=== PATIENT | male | born 1970 | race Two or more races ===

== ENCOUNTER 2017-06-05 03:53 | Inpatient (IN) | payer OTHER ==
[~2017-06-05] VITALS: Ht 162.6 cm; Wt 84.9 kg
[2017-06-05] MEDS ORDERED: ALBUTEROL/IPRATROPIUM 2.5MG/0.5MG, 3 ML ONE (04:04)
[2017-06-05] MEDS ORDERED: ALBUTEROL 0.5%, 20ML ONE (04:05)
[2017-06-05] MEDS ORDERED: methylPREDNISolone SOD SUCC 40 MG/ML ONE (04:10)
[2017-06-05] MEDS ORDERED: methylPREDNISolone SOD SUCC 125 MG/2 ML ONE (04:12)
[2017-06-05] MEDS ORDERED: ALBUTEROL/IPRATROPIUM 2.5MG/0.5MG, 3 ML NPPB PRN (04:30)
[2017-06-05] MEDS ORDERED: MAGNESIUM SULFATE PMX 2GM/50ML 50 ML IV ONE (04:30)
[2017-06-05] MEDS ORDERED: methylPREDNISolone SOD SUCC 125 MG/2 ML IVP ONE (04:30)
[2017-06-05] MEDS ORDERED: SODIUM CHLORIDE FLUSH 10ML SYR IVF ONE (04:30)
[2017-06-05] MEDS ORDERED: SODIUM CHLORIDE 0.9% 1,000ML IVBOLUS ONE (04:30)
[2017-06-05] MEDS: ALBUTEROL/IPRATROPIUM 2.5MG/0.5MG, 3 ML NPPB SCH ×7 (04:38→22:55)
[2017-06-05] MEDS ORDERED: IPRA12.9 NEB (04:52)
[2017-06-05] MEDS ORDERED: ALBU18HF PO (04:52)
[2017-06-05 04:54] LABS: HEMATOCRIT 54.1 % (39.2-51.8); HEMOGLOBIN 17.8 g/dL (13.7-18.0); WHITE BLOOD COUNT 7.8 x10^3/uL (3.4-10)
[2017-06-05 05:05] LABS: ASPARTATE AMINO TRANSFERASE 11 U/L (15-37); BLOOD UREA NITROGEN 19 mg/dL (7-18)
[2017-06-05] MEDS ORDERED: ACETAMINOPHEN 325 MG TABLET PO PRN (05:30)
[2017-06-05] MEDS ORDERED: DOCUSATE 100 MG CAPSULE PO PRN (05:30)
[2017-06-05] MEDS ORDERED: ONDANSETRON 2MG/ML, 2ML IVPush PRN (05:30)
[2017-06-05] MEDS ORDERED: PROMETHAZINE 25 MG/ML, 1ML IM PRN (05:30)
[2017-06-05] MEDS ORDERED: BISACODYL 10 MG SUPP PR PRN (05:30)
[2017-06-05] MEDS ORDERED: POLYETHYLENE GLYCOL 17 GM PACKET PO PRN (05:30)
[2017-06-05 05:57] VITALS: BP 140/90
[2017-06-05] MEDS ORDERED: PNEUMOCOCCAL 23 VACCINE IM-VACC ONE (06:00)
[2017-06-05] MEDS: HYDROcodone/APAP 5/325 TABLET PO PRN ×2 (06:06→22:55)
[2017-06-05] MEDS: ENOXAPARIN 40 MG/0.4 ML SQ SCH (06:06)
[2017-06-05 07:53] VITALS: BP 125/74
[2017-06-05] MEDS: methylPREDNISolone SOD SUCC 125 MG/2 ML IVPush SCH ×3 (09:04→22:49)
[2017-06-05 12:57] VITALS: BP 115/82
[2017-06-05 20:10] VITALS: BP 116/73
[2017-06-06 02:15] VITALS: BP 107/64
[2017-06-06] MEDS: ALBUTEROL/IPRATROPIUM 2.5MG/0.5MG, 3 ML NPPB SCH ×6 (03:40→22:00)
[2017-06-06] MEDS: methylPREDNISolone SOD SUCC 125 MG/2 ML IVPush SCH (04:37)
[2017-06-06] MEDS: ENOXAPARIN 40 MG/0.4 ML SQ SCH (05:43)
[2017-06-06 06:25] LABS: HEMATOCRIT 47.3 % (39.2-51.8); WHITE BLOOD COUNT 13.1 x10^3/uL (3.4-10)
[2017-06-06 06:34] LABS: BLOOD UREA NITROGEN 24 mg/dL (7-18)
[2017-06-06 06:37] LABS: ASPARTATE AMINO TRANSFERASE 16 U/L (15-37)
[2017-06-06 08:09] VITALS: BP 117/69
[2017-06-06 14:11] VITALS: BP 102/51
[2017-06-06 18:48] VITALS: BP 114/61
[2017-06-07 00:52] VITALS: BP 106/60
[2017-06-07] MEDS: ENOXAPARIN 40 MG/0.4 ML SQ SCH (06:25)
[2017-06-07] MEDS: ALBUTEROL/IPRATROPIUM 2.5MG/0.5MG, 3 ML NPPB SCH (07:07)
[2017-06-07 07:40] VITALS: BP 114/68
[2017-06-07] MEDS ORDERED: ALBU18HF PO (09:03)
[2017-06-07] MEDS ORDERED: PRED20TA PO (09:03)
[2017-06-07] MEDS ORDERED: IPRA12.9 NEB (09:03)
== END 2017-06-07 10:22 | disposition home or self-care (01) | DRG 189 ==
LOC: ED 04:50 → EDIP 04:51 → 4NOR 05:48 → DCLOUNGE 06-07 10:00
PROVIDERS: ADMIT Internal Medicine; ATTEND Internal Medicine
DX: J96.01 Acute respiratory failure with hypoxia (principal); J45.42 Moderate persistent asthma with status asthmaticus; R65.10 Systemic inflammatory response syndrome (SIRS) of non-infectious origin without acute organ dysfunction; J45.41 Moderate persistent asthma with (acute) exacerbation; Z91.19 Patient's noncompliance with other medical treatment and regimen; Z23 Encounter for immunization
CPT/HCPCS: 36415; 71010; 80053; 85025; 90732; 93005; 94640; 94644; 96365; 96375; J1650; J7620; J2930; J3475; J7030; J7512

== ENCOUNTER → 2017-11-01 | Outpatient (CLI) | payer BC ==
[~2017-11-01] MED LIST: ALBU18HF PO; IPRA12.9 NEB; PRED20TA PO
== END | disposition home or self-care (01) ==
LOC: CFH 15:38
PROVIDERS: ATTEND Physician Assistant
DX: M79.642 Pain in left hand (principal); M79.641 Pain in right hand

== ENCOUNTER 2019-09-07 11:13 | Emergency (ER) | payer BC ==
[~2019-09-07] VITALS: Ht 160 cm; Wt 89.3 kg
--- NOTE | 2019-09-07 11:32 | NUR ---
THIS IS A 49 YO MALE COMING IN FOR ASTHMA EXACERBATION. PATIENT HAS HX OF ASTHMA AND HAS AN INHALER AT HOME. PATIENTHAS BEEN USING INHALER FOR THE PAST DAY WITH NO RELIEF. WAS SEEN AT URGENT CARE TODAY, AND WAS SENT TO ER. 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 RESPIRATIONS ARE CURRENTLY EVEN AND UNLABORED, BUT RR IS 28. CYCLE VS Q 1 HR. FAMILY AT BEDSIDE, DENIES FURTHER NEEDS AT THIS TIME.
[2019-09-07] MEDS ORDERED: ALBUTEROL/IPRATROPIUM 2.5MG/0.5MG, 3 ML ONE ×2 (11:35→12:43)
--- NOTE | 2019-09-07 11:36 | NUR ---
RT IN ROOM
[2019-09-07] MEDS: ALBUTEROL/IPRATROPIUM 2.5MG/0.5MG, 3 ML NPPB SCH (11:39)
[2019-09-07] MEDS ORDERED: ONDANSETRON 2MG/ML, 2ML ONE (11:41)
[2019-09-07] MEDS ORDERED: MORPHINE SULFATE 4 MG/ML, 1ML ONE (11:42)
[2019-09-07] MEDS ORDERED: ONDANSETRON 2MG/ML, 2ML IVPush ONE (12:00)
[2019-09-07] MEDS ORDERED: SODIUM CHLORIDE FLUSH 10ML SYR IVF ONE (12:00)
[2019-09-07] MEDS ORDERED: MORPHINE SULFATE 4 MG/ML, 1ML IVPush PRN (12:00)
[2019-09-07 12:02] LABS: BASOPHILS # (AUTO) 0.03 x10^3/uL (0-0.1); BASOPHILS % (AUTO) 0 % (0-1); EOSINOPHILS % (AUTO) 10 % (1-7); LYMPHOCYTES # (AUTO) 2.24 x10^3/uL (1-3.4); LYMPHOCYTES % (AUTO) 27 % (22-44); MD NO; MEAN CORPUSCULAR HEMOGLOBIN 31.6 pg (27.5-34.5); MEAN CORPUSCULAR HGB CONC 33.4 g/dL (33.2-36.2); MEAN CORPUSCULAR VOLUME 94.7 fL (81-97); MEAN PLATELET VOLUME 8.4 fL (7.4-10.4); MONOCYTES % (AUTO) 7 % (2-9); NEUTROPHILS # (AUTO) 4.67 x10^3/uL (1.8-6.8); NEUTROPHILS % (AUTO) 56 % (42-75); PLATELET COUNT 224 x10^3/uL (130-400); RED BLOOD COUNT 5.82 x10^6/uL (4.38-5.82); RED CELL DISTRIBUTION WIDTH 13.3 % (9.4-14.8)
[2019-09-07 12:14] LABS: ALBUMIN 4.3 g/dL (3.4-5.0); ANION GAP 5 mmol/L (5-15); CALCIUM 9.2 mg/dL (8.5-10.1); CHLORIDE 109 mmol/L (98-107)
[2019-09-07 12:19] LABS: CREATININE 1.09 mg/dL (0.7-1.3); TROPONIN I < 0.015 ng/mL (0.000-0.045)
[2019-09-07 12:21] LABS: RAPID INFLUENZA A Negative (Negative); RAPID INFLUENZA B Negative (Negative)
[2019-09-07] MEDS ORDERED: ALBUTEROL/IPRATROPIUM 2.5MG/0.5MG, 3 ML NPPB ONE (13:00)
[2019-09-07 13:03] VITALS: BP 128/80
== END 2019-09-07 13:11 | disposition home or self-care (01) ==
LOC: ED 12:22
DX: J45.41 Moderate persistent asthma with (acute) exacerbation (principal); R00.0 Tachycardia, unspecified
CPT/HCPCS: 36415; 71045; 80048; 82040; 83880; 84484; 85025; 85379; 87400; 93005; 94640; 96374; 96375; 99284; J2270; J2405; J7512; J7620

== ENCOUNTER 2019-09-20 18:16 | Emergency (ER) | payer BC ==
[~2019-09-20] VITALS: Ht 162.6 cm; Wt 92.2 kg
[2019-09-20] MEDS ORDERED: methylPREDNISolone SOD SUCC 125 MG/2 ML ONE (18:56)
[2019-09-20] MEDS ORDERED: methylPREDNISolone SOD SUCC 125 MG/2 ML IV ONE (19:00)
--- NOTE | 2019-09-20 19:06 | NUR ---
PT TO ROOM FROM LOBBY VIA WHEELCHAIR. PT WITH LABORED, RAPID RESPIRATIONS AND FREQUENT COUGH. +ACCESSORY MUSCLE USE/SPEAKING IN 3-5 WORD SENTENCES. DAUGHTER REPORTS THAT PT HAS HX OF ASTHMA, SEEN IN ED SUNDAY FOR SAME AND RX'D PREDNISONE, "THE SYMPTOMS WERE GETTING BETTER UNTIL TODAY". +"GREEN" SPUTUM. PT DENIES FEVER/CP. BP/SPO2 MONITORING IN PLACE. IV ESTABLISHED. RT CALLED. PT MEDICATED WITH SOLUMEDROL PER ERP ORDER.
[2019-09-20] MEDS ORDERED: ALBUTEROL/IPRATROPIUM 2.5MG/0.5MG, 3 ML ONE ×3 (19:10→22:25)
[2019-09-20] MEDS: ALBUTEROL/IPRATROPIUM 2.5MG/0.5MG, 3 ML NPPB SCH ×2 (19:15→19:55)
[2019-09-20 19:31] LABS: BASOPHILS # (AUTO) 0.08 x10^3/uL (0-0.1); BASOPHILS % (AUTO) 1 % (0-1); EOSINOPHILS # (AUTO) 0.71 x10^3/uL (0-0.4); EOSINOPHILS % (AUTO) 9 % (1-7); LYMPHOCYTES # (AUTO) 2.53 x10^3/uL (1-3.4); LYMPHOCYTES % (AUTO) 30 % (22-44); MD NO; MEAN CORPUSCULAR HEMOGLOBIN 31.9 pg (27.5-34.5); MEAN CORPUSCULAR HGB CONC 33.4 g/dL (33.2-36.2); MEAN CORPUSCULAR VOLUME 95.8 fL (81-97); MEAN PLATELET VOLUME 8.4 fL (7.4-10.4); MONOCYTES % (AUTO) 8 % (2-9); NEUTROPHILS # (AUTO) 4.32 x10^3/uL (1.8-6.8); NEUTROPHILS % (AUTO) 52 % (42-75); PLATELET COUNT 237 x10^3/uL (130-400); RED BLOOD COUNT 5.19 x10^6/uL (4.38-5.82); RED CELL DISTRIBUTION WIDTH 13.5 % (9.4-14.8)
[2019-09-20 19:41] LABS: ALANINE AMINOTRANSFERASE 54 U/L (12-78); ALBUMIN 3.6 g/dL (3.4-5.0); ANION GAP 7 mmol/L (5-15); CALCIUM 8.8 mg/dL (8.5-10.1); CHLORIDE 111 mmol/L (98-107); CREATININE 1.29 mg/dL (0.7-1.3)
[2019-09-20 19:43] LABS: ALKALINE PHOSPHATASE 63 U/L (45-117); BILIRUBIN,TOTAL 0.5 mg/dL (0.2-1.0); TOTAL PROTEIN 7.3 g/dL (6.4-8.2)
--- NOTE | 2019-09-20 19:55 | NUR ---
PT RECEIVING SECOND NEB AT THIS TIME. PT WITH MINIMAL RESP DISTRESS NOTED. POC DISCUSSED. PT AND SPOUSE DENY CURRENT NEEDS.
--- NOTE | 2019-09-20 20:18 | NUR ---
PT W/ SIGNIFICANT IMPROVEMENT IN WOB. PT RESTING COMFORTABLY IN GURNEY, LAYING W/ HOB AT 30 DEGREES. SPO2 >90% ON RA. RR WNL.
[2019-09-20 21:00] VITALS: BP 141/70
--- NOTE | 2019-09-20 21:02 | NUR ---
PT ABLE TO MAINTAIN SPO2 WHILE AMBULATING, SPO2 91-92%. ERP AWARE.
--- NOTE | 2019-09-20 21:45 | NUR ---
POC IS ADDITIONAL BREATHING TX AND DC. AWAITING RT
--- NOTE | 2019-09-20 22:28 | NUR ---
AWAITING RT FOR DC
[2019-09-20] MEDS ORDERED: ALBUTEROL SULFATE 2.5 MG/3 ML NPPB ONE (22:30)
--- NOTE | 2019-09-20 22:37 | NUR ---
DC EDUCATION PROVIDED, PT DEMONSTRATES UNDERSTANDING. PT AMBULATED STEADILY TO DC WITH RN AND DAUGHTER
== END 2019-09-20 22:48 | disposition home or self-care (01) ==
LOC: MERGE 18:16 → ED 20:19
DX: J45.51 Severe persistent asthma with (acute) exacerbation (principal)
CPT/HCPCS: 36415; 71045; 80053; 85025; 93005; 94640; 96374; 99285; J2930; J7613; J7620